=== PATIENT | male | born 1975 | race Caucasian/White ===

== ENCOUNTER 2020-12-29 12:23 | Outpatient (CLI) | payer MEDICARE, MEDICAID | END 2020-12-29 23:59 | disposition home or self-care (01) | LOC: CFH 12:23 | PROVIDERS: ATTEND Family Medicine | DX: R60.0 Localized edema (principal) ==

== ENCOUNTER → 2021-02-09 | Outpatient (CLI) | payer MEDICARE, MEDICAID | END | disposition home or self-care (01) | LOC: CFH 10:52 | PROVIDERS: ATTEND Psychiatry & Neurology Neurology | DX: I65.23 Occlusion and stenosis of bilateral carotid arteries (principal); H47.012 Ischemic optic neuropathy, left eye; H46.8 Other optic neuritis; E11.3293 Type 2 diabetes mellitus with mild nonproliferative diabetic retinopathy without macular edema, bilateral; H35.7 Separation of retinal layers; H35.352 Cystoid macular degeneration, left eye; H53.462 Homonymous bilateral field defects, left side | CPT/HCPCS: 93880 ==